=== PATIENT | male | born 1935 | race Asian ===

== ENCOUNTER 2017-05-28 14:23 | Emergency (ER) | payer MEDICARE, OTHER ==
[~2017-05-28] VITALS: Ht 165.1 cm; Wt 61.0 kg
[2017-05-28] MEDS ORDERED: LEVO50TA8 PO (14:40)
[2017-05-28] MEDS ORDERED: [UNRECOGNIZED DRUG - OTHER] (14:40)
[2017-05-28] MEDS ORDERED: SODIUM CHLORIDE 0.9% 1,000 ML IV ONE ×2 (15:43→17:30)
[2017-05-28] MEDS ORDERED: KETOROLAC 30MG/ML VIAL IV STA (15:43)
[2017-05-28 15:54] LABS: HEMATOCRIT. 48.7 % (42.0-52.0); HEMOGLOBIN. 16.8 g/dL (14.0-18.0); MEAN CORPUSCULAR HEMOGLOBIN 30.5 pg (28.0-32.0); MEAN CORPUSCULAR VOLUME 88.6 fL (80.0-94.0); MEAN PLATELET VOLUME 8.3 fl (7.4-10.4); PLATELET 155 x1000/uL (130-400); RED CELL DISTRIBUTION WIDTH 14.8 % (11.6-14.6)
[2017-05-28 15:59] LABS: INR 1.1; PROTHROMBIN TIME 11.5 sec
[2017-05-28 16:06] LABS: CARBON DIOXIDE 29 mEq/L (21-32); CHLORIDE 99 mEq/L (98-107)
[2017-05-28 16:40] VITALS: BP 149/93
[2017-05-28 16:42] LABS: CLARITY URINE CLEAR (CLEAR); COLOR URINE YELLOW (YELLOW); KETONES URINE TRACE (NEGATIVE); LEUKOCYTE ESTERASE URINE NEGATIVE (NEGATIVE); NITRITE URINE NEGATIVE (NEGATIVE); OCCULT BLOOD URINE NEGATIVE (NEGATIVE); PROTEIN URINE 1+ (NEGATIVE); SPECIFIC GRAVITY URINE 1.013 (1.005-1.030); UROBILINOGEN URINE 0.2 E.U./dL (0.2-1.0)
[2017-05-28 18:10] LABS: PLATELET ESTIMATE NORMAL
== END 2017-05-28 18:54 | disposition home or self-care (01) ==
LOC: ER 15:43
DX: R10.33 Periumbilical pain (principal); E87.2 Acidosis; I10 Essential (primary) hypertension; E03.9 Hypothyroidism, unspecified
CPT/HCPCS: 36415; 71010; 74176; 80053; 81001; 83605; 83690; 85025; 85610; 96361; 96374; 99285; J1885; J7030